=== PATIENT | female | born 1950 | race Caucasian/White ===

== ENCOUNTER 2019-05-30 13:32 | Observation (INO) ==
[2019-05-30] MEDS ORDERED: DEMEROL INJ IVP PRN (14:27)
[2019-05-30] MEDS ORDERED: NS 1000 ML 1,000 ML ONE (14:40)
[2019-05-30 14:54] LABS: BASOPHILS # (AUTO) 0.1 X10^3/uL (0.0-0.1); BASOPHILS % (AUTO) 0.7 % (0.2-1.0); EOSINOPHILS # (AUTO) 0.2 x10^3/uL (0.0-0.2); EOSINOPHILS % (AUTO) 2.2 % (0.9-2.9); HEMATOCRIT 43.3 % (36.0-47.0); HEMOGLOBIN 15.3 g/dL (12.0-16.0); LYMPHOCYTES # (AUTO) 1.8 X10^3/uL (1.3-2.9); LYMPHOCYTES % (AUTO) 18.1 % (21.0-51.0); MEAN CORPUSCULAR HEMOGLOBIN 33.2 pg (27.0-34.0); MEAN CORPUSCULAR HGB CONC 35.3 g/dL (33.0-35.0); MEAN PLATELET VOLUME 9.1 fL (7.4-11.0); MONOCYTES # (AUTO) 0.9 x10^3/uL (0.3-0.8); MONOCYTES % (AUTO) 8.8 % (0.0-13.0); NEUTROPHILS # (AUTO) 7.1 x10^3/uL (2.2-4.8); NEUTROPHILS % (AUTO) 70.2 % (42.0-75.0); PLATELET COUNT 218 X10^3/uL (150.0-450.0); RED BLOOD COUNT 4.61 X10^6/uL (3.5-5.4); RED CELL DISTRIBUTION WIDTH 14.5 % (11.6-16.5); WHITE BLOOD COUNT 10.1 X10^3/uL (3.6-10.0)
[2019-05-30 15:09] LABS: ALANINE AMINOTRANSFERASE 17 Units/L (12-78); ALBUMIN 3.6 g/dL (3.4-5.0); ALKALINE PHOSPHATASE 114 Units/L (46-116); AMYLASE 40 Units/L (25-115); ASPARTATE AMINO TRANSFERASE 17 Units/L (15-37); BLOOD UREA NITROGEN 10 mg/dL (7-18); CALCIUM 9.2 mg/dL (8.5-10.1); CARBON DIOXIDE 20.8 mmol/L (21-32); CHLORIDE 103 mmol/L (98-107); COR NA(FOR HYPERGLY) 139 mmol/L (136-145); CREATININE 1.13 mg/dL (0.55-1.02); LIPASE 134 Units/L (73-393); SODIUM 138 mmol/L (136-145); TOTAL PROTEIN 7.9 g/dL (6.4-8.2); eGFR NON BLACK RACES 51 (>60)
[2019-05-30] MEDS: NS 1000 ML 1,000 ML IV SCH (15:15)
[2019-05-30] MEDS: FLAGYL IV PREMIX 500 MG BAG 500 MG/100 ML BAG IV SCH ×2 (15:15→21:05)
[2019-05-30] MEDS: CIPRO IV 400 MG PREMIX* 400 MG/200 ML IV.SOLN. IV SCH ×2 (15:16→22:13)
[2019-05-30 15:25] VITALS: BMI 26.1
[2019-05-30] MEDS ORDERED: KLOR-CON PO PRN (15:51)
[2019-05-30] MEDS ORDERED: POTASSIUM CHL 60 MEQ/NS 0.45% 500 ML IV PRN (15:51)
[2019-05-30] MEDS ORDERED: POTASSIUM CHLORIDE LIQ 20 MEQ UDC PO PRN (15:51)
[2019-05-30] MEDS ORDERED: K-RIDER 10 MEQ/NS 100 ML 10 MEQ/100 ML BAG IV PRN (15:51)
[2019-05-30] MEDS ORDERED: POTASSIUM CHL 40 MEQ/NS 0.45% 500 ML IV PRN (15:51)
[2019-05-30] MEDS ORDERED: MICRO K EXTEN CAP 10 MEQ PO PRN (15:51)
[2019-05-30 17:03] LABS: CRYPTOSPORIDIUM PARVUM ANTIGEN NEGATIVE (NEGATIVE); GIARDIA LAMBLIA ANTIGEN NEGATIVE (NEGATIVE)
[2019-05-30] MEDS: K-DUR TAB 20 MEQ PO PRN (18:34)
[2019-05-30] MEDS: MAGNESIUM SULFATE 1 GRAM/100 mL PREMIX 1 GM/100 ML BAG IV PRN ×2 (18:35→20:10)
[2019-05-30] MEDS: PEPCID TAB 20 MG PO SCH (20:09)
[2019-05-30] MEDS: PROTONIX TAB 40 MG PO SCH (20:09)
[2019-05-30] MEDS: ZOFRAN INJ 4 MG VIAL IVP PRN (20:10)
--- NOTE | 2019-05-30 20:20 | CT ---
CT abdomen and pelvis with contrastIndication: Lower quadrant abdominal painTechnique: Helical CT images of the abdomen and pelvis were obtained with IV contrast. Reformatted images in the coronal and sagittal planes were also generated for review.Comparison: NoneFindings: Lung bases are clear of acute infiltrates. No acute osseous abnormality.The liver, gallbladder, spleen, pancreas, adrenals and kidneys are unremarkable.There is diffuse mural thickening and mucosal enhancement of the entire colon, compatible with pancolitis. Mild diverticulosis of the distal colon is also noted. No associated abscess or free air to suggest perforation seen. There is no bowel obstruction.The abdominal aorta is mildly calcified without aneurysm. The partially collapsed urinary bladder is grossly normal. Uterus is absent. No significant free fluid or lymphadenopathy is identified.Impression:Pancolitis, which is likely infectious rather than ischemic or infectious in etiology. Correlate clinically.Mild distal colonic diverticulosis and additional findings as above.Reported By:
[2019-05-30 21:57] LABS: BILIRUBIN,URINE NEGATIVE (NEGATIVE); BLOOD/HEMOGLOBIN,URINE 3+ (NEGATIVE); GLUCOSE, URINE NEGATIVE (NEGATIVE); KETONES,URINE 1+ (NEGATIVE); LEUKOCYTE ESTERASE ,URINE 1+ (NEGATIVE); NITRITES,URINE NEGATIVE (NEGATIVE); PROTEIN,URINE 2+ (NEGATIVE); UROBILINOGEN,URINE NORMAL (NORMAL)
[2019-05-30 22:10] LABS: APPEARANCE,URINE CLEAR (CLEAR); BACTERIA,URINE NEGATIVE /HPF (NEGATIVE); COLOR,URINE YELLOW (YELLOW); SQUAMOUS EPITHELIAL CELL,UR FEW /HPF (NEGATIVE)
[2019-05-30] MEDS: ZESTRIL TAB 5 MG PO SCH (22:16)
[2019-05-30] MEDS: BRILINTA PO SCH (22:16)
[2019-05-30] MEDS: LOPRESSOR TAB 25 MG PO SCH (22:16)
[2019-05-31] MEDS: NS 1000 ML 1,000 ML IV SCH ×3 (00:33→16:05)
[2019-05-31] MEDS: FLAGYL IV PREMIX 500 MG BAG 500 MG/100 ML BAG IV SCH ×4 (02:27→21:01)
[2019-05-31 05:30] LABS: BASOPHILS # (AUTO) 0.1 X10^3/uL (0.0-0.1); BASOPHILS % (AUTO) 0.8 % (0.2-1.0); EOSINOPHILS # (AUTO) 0.3 x10^3/uL (0.0-0.2); EOSINOPHILS % (AUTO) 4.1 % (0.9-2.9); HEMATOCRIT 40.1 % (36.0-47.0); LYMPHOCYTES # (AUTO) 1.6 X10^3/uL (1.3-2.9); LYMPHOCYTES % (AUTO) 18.7 % (21.0-51.0); MEAN CORPUSCULAR HEMOGLOBIN 32.6 pg (27.0-34.0); MEAN CORPUSCULAR HGB CONC 34.9 g/dL (33.0-35.0); MEAN CORPUSCULAR VOLUME 93.4 fL (80.0-100.0); MEAN PLATELET VOLUME 8.9 fL (7.4-11.0); MONOCYTES # (AUTO) 0.9 x10^3/uL (0.3-0.8); MONOCYTES % (AUTO) 10.8 % (0.0-13.0); NEUTROPHILS # (AUTO) 5.5 x10^3/uL (2.2-4.8); NEUTROPHILS % (AUTO) 65.6 % (42.0-75.0); PLATELET COUNT 224 X10^3/uL (150.0-450.0); RED BLOOD COUNT 4.29 X10^6/uL (3.5-5.4); RED CELL DISTRIBUTION WIDTH 14.2 % (11.6-16.5); WHITE BLOOD COUNT 8.4 X10^3/uL (3.6-10.0)
[2019-05-31 05:31] LABS: ALANINE AMINOTRANSFERASE 13 Units/L (12-78); ALBUMIN 3.2 g/dL (3.4-5.0); ALKALINE PHOSPHATASE 99 Units/L (46-116); ASPARTATE AMINO TRANSFERASE 16 Units/L (15-37); BLOOD UREA NITROGEN 8 mg/dL (7-18); CALCIUM 8.6 mg/dL (8.5-10.1); CARBON DIOXIDE 22.8 mmol/L (21-32); CHLORIDE 105 mmol/L (98-107); COR CA(FOR HYPOALB) 9.2 mg/dL (8.5-10.1); COR NA(FOR HYPERGLY) 139 mmol/L (136-145); CREATININE 1.06 mg/dL (0.55-1.02); MAGNESIUM 2.3 mg/dL (1.7-2.9); SODIUM 138 mmol/L (136-145); TOTAL PROTEIN 7.1 g/dL (6.4-8.2); eGFR NON BLACK RACES 55 (>60)
[2019-05-31] MEDS: PEPCID TAB 20 MG PO SCH (12:41)
[2019-05-31] MEDS: ASPIRIN EC 81 MG PO SCH (12:41)
[2019-05-31] MEDS: LOPRESSOR TAB 25 MG PO SCH ×2 (12:41→21:02)
[2019-05-31] MEDS: PROTONIX TAB 40 MG PO SCH ×2 (12:41→21:01)
[2019-05-31] MEDS: BRILINTA PO SCH ×2 (12:41→21:01)
[2019-05-31] MEDS: CIPRO IV 400 MG PREMIX* 400 MG/200 ML IV.SOLN. IV SCH (12:42)
[2019-05-31] MEDS: ZESTRIL TAB 5 MG PO SCH ×2 (12:47→21:00)
--- NOTE | 2019-05-31 13:43 | PCM.PROG ---
Progress Note Progress Note for Day of Date of Exam: 05/31/19 Subjective Subjective: Patient seen at bedside, continues to have watery diarrhea. She had over 10 BM overnight, no blood. She still has LLQ pain. Denies nausea or vomiting. She states she is hungry. CTAP showed pancolitis, H. Pylori stool antigen positive. Denies prev hx. Past Medical Family Social History Past Med/Fam/Surg Hx: No changes since H&P Allergies: Allergies No Known Drug Allergies Allergy (Verified 05/30/19 14:29) Review of Systems ROS: No change since H&P Vital Signs and I&O's Vital Signs: Temperature 98.1 F Pulse Rate [Right Brachial] 78 Respiratory Rate 18 Blood Pressure [Right Arm] 144/71 O2 Sat by Pulse Oximetry 97 Intake and Output: Intake & Output 05/28/19 05/29/19 05/30/19 05/31/19 23:59 23:59 23:59 23:59 Intake Total 800 / 800 900 / 900 Balance 800 / 800 900 / 900 Physical Exam Oriented: Normal Eyes: Normal Ear: Normal Throat: Normal Respiratory: Normal Cardiovascular: Normal Auscultation: Bowel Sounds: Decreased Tenderness: LLQ and Mild; negative Rebound and Guarding Skin: Normal Musculoskeletal: Normal Psychiatric: Normal Mood Description: Calm Affect: Normal Speech Pattern: Clear and Appropriate Laboratory and Diagnostics Result Diagrams: 05/31/19 04:24 05/31/19 04:24 Labs: 05/30/19 15:55 Stool Stool Culture - Preliminary 05/30/19 15:55 Stool - Final Laboratory WBC 8.4 X10^3/uL (3.6-10.0) 05/31/19 04:24 RBC 4.29 X10^6/uL (3.5-5.4) 05/31/19 04:24 Hgb 14.0 g/dL (12.0-16.0) 05/31/19 04:24 Hct 40.1 % (36.0-47.0) 05/31/19 04:24 MCV 93.4 fL (80.0-100.0) 05/31/19 04:24 MCH 32.6 pg (27.0-34.0) 05/31/19 04:24 MCHC 34.9 g/dL (33.0-35.0) 05/31/19 04:24 RDW 14.2 % (11.6-16.5) 05/31/19 04:24 Plt Count 224 X10^3/uL (150.0-450.0) 05/31/19 04:24 MPV 8.9 fL (7.4-11.0) 05/31/19 04:24 Neut % (Auto) 65.6 % (42.0-75.0) 05/31/19 04:24 Lymph % (Auto) 18.7 % (21.0-51.0) L 05/31/19 04:24 Saline % (Auto) 10.8 % (0.0-13.0) 05/31/19 04:24 Eos % (Auto) 4.1 % (0.9-2.9) H 05/31/19 04:24 Baso % (Auto) 0.8 % (0.2-1.0) 05/31/19 04:24 Neut # (Auto) 5.5 x10^3/uL (2.2-4.8) H 05/31/19 04:24 Lymph # (Auto) 1.6 X10^3/uL (1.3-2.9) 05/31/19 04:24 Saline # (Auto) 0.9 x10^3/uL (0.3-0.8) H 05/31/19 04:24 Eos # (Auto) 0.3 x10^3/uL (0.0-0.2) H 05/31/19 04:24 Baso # (Auto) 0.1 X10^3/uL (0.0-0.1) 05/31/19 04:24 Absolute Nucleated RBC 0.0 /100WBC 05/31/19 04:24 Sodium 138 mmol/L (136-145) 05/31/19 04:24 Corrected Sodium 139 mmol/L (136-145) 05/31/19 04:24 Potassium 3.3 mmol/L (3.5-5.1) L 05/31/19 04:24 Chloride 105 mmol/L (98-107) 05/31/19 04:24 Carbon Dioxide 22.8 mmol/L (21-32) 05/31/19 04:24 BUN 8 mg/dL (7-18) 05/31/19 04:24 Creatinine 1.06 mg/dL (0.55-1.02) H 05/31/19 04:24 Est GFR (MDRD) Af Amer > 60 (>60) 05/31/19 04:24 Est GFR (MDRD) Non-Af 55 (>60) L 05/31/19 04:24 Glucose 129 mg/dL (65-99) H 05/31/19 04:24 Calcium 8.6 mg/dL (8.5-10.1) 05/31/19 04:24 Corrected Calcium 9.2 mg/dL (8.5-10.1) 05/31/19 04:24 Magnesium 2.3 mg/dL (1.7-2.9) 05/31/19 04:24 Total Bilirubin 0.50 mg/dL (0.2-1.0) 05/31/19 04:24 AST 16 Units/L (15-37) 05/31/19 04:24 ALT 13 Units/L (12-78) 05/31/19 04:24 Alkaline Phosphatase 99 Units/L (46-116) 05/31/19 04:24 Total Protein 7.1 g/dL (6.4-8.2) 05/31/19 04:24 Albumin 3.2 g/dL (3.4-5.0) L 05/31/19 04:24 Globulin 3.9 g/dL (2.5-4.5) 05/31/19 04:24 Albumin/Globulin Ratio 0.8 Ratio (1.1-2.1) L 05/31/19 04:24 Amylase 40 Units/L (25-115) 05/30/19 14:35 Lipase 134 Units/L (73-393) 05/30/19 14:35 Specimen Type Clean catch urine 05/30/19 21:23 Urine Color Yellow (YELLOW) 05/30/19 21:23 Urine Appearance Clear (CLEAR) 05/30/19 21:23 Urine pH 5.0 (5.0 - 8.0) 05/30/19 21:23 Ur Specific [place] 1.010 (1.000-1.030) 05/30/19 21:23 Urine Protein 2+ (NEGATIVE) 05/30/19 21:23 Urine Glucose (UA) Negative (NEGATIVE) 05/30/19 21:23 Urine Ketones 1+ (NEGATIVE) 05/30/19 21:23 Urine Occult Blood 3+ (NEGATIVE) 05/30/19 21:23 Urine Nitrite Negative (NEGATIVE) 05/30/19 21:23 Urine Bilirubin Negative (NEGATIVE) 05/30/19 21:23 Urine Urobilinogen Normal (NORMAL) 05/30/19 21:23 Ur Leukocyte Esterase 1+ (NEGATIVE) 05/30/19 21:23 Urine RBC 3-5 /HPF (0-3) A 05/30/19 21:23 Urine WBC 0-2 /HPF (0-5) 05/30/19 21:23 Ur Squamous Epith Cells Few /HPF (NEGATIVE) 05/30/19 21:23 Urine Bacteria Negative /HPF (NEGATIVE) 05/30/19 21:23 Ur Culture Indicated? No/not indicated 05/30/19 21:23 Stool Description 100g,green,liquid 05/30/19 15:55 Stool Description 100g,green,liquid 05/30/19 15:55 Stl Occult Blood (IFOB) Positive (NEGATIVE) A 05/30/19 15:55 Stool for White Cells Positive (NEGATIVE) A 05/30/19 15:55 Stl C. diff Tox B Gene Negative (NEGATIVE) 05/30/19 15:55 Stl C. diff 027-NAP1-BI Negative (NEGATIVE) 05/30/19 15:55 Stool H. pylori Ag Positive (NEGATIVE) A 05/30/19 15:55 Cryptosporid parvum Ag Negative (NEGATIVE) 05/30/19 15:55 Giardia lamblia Ag Negative (NEGATIVE) 05/30/19 15:55 Plan (1) Pancolitis: Status: Acute Plan: CTAP: concerning for diffuse mural thickening and pancolitis. Currently on Cipro and Flagyl. C.diff and campy negative. Stool culture H. Pylori antigen positive. Currently NPO, start clear liquids Will DC cipro and start quadruple therapy for H. Pylori infection. No prior hx of diarrhea or IBD, concern for IBD including UC. (2) H. pylori infection: Status: Acute Plan: Start PPI + Bismuth + Flagyl + Doxycycline (3) Dehydration: Status: Acute Plan: continue hydration with IVF (4) Hypokalemia: Status: Acute Plan: replace as per protocol (5) Acute renal failure: Status: Acute Qualifiers: Acute renal failure type: unspecified Qualified Code(s): N17.9 - Acute kidney failure, unspecified Plan: likely pre-renal due to diarrhea, Cr trending down, continue hydration.
[2019-05-31] MEDS: PEPTO-BISMOL ORAL SUSP BTL PO SCH ×4 (15:07→21:01)
[2019-05-31] MEDS: VIBRAMYCIN PO SCH ×2 (16:05→21:01)
[2019-05-31] MEDS ORDERED: SYNTHROID 25 mcg TAB PO SCH (16:30)
[2019-05-31] MEDS: ZOFRAN INJ 4 MG VIAL IVP PRN (17:04)
[2019-05-31] MEDS ORDERED: BUTT CREAM (COMPOUND) ONE (17:49)
[2019-05-31] MEDS: K-DUR TAB 20 MEQ PO PRN (21:02)
[2019-06-01] MEDS: FLAGYL IV PREMIX 500 MG BAG 500 MG/100 ML BAG IV SCH ×2 (03:15→08:29)
[2019-06-01] MEDS: NS 1000 ML 1,000 ML IV SCH ×2 (04:27→09:36)
[2019-06-01] MEDS: PROTONIX TAB 40 MG PO SCH (08:30)
[2019-06-01] MEDS: ASPIRIN EC 81 MG PO SCH (08:30)
[2019-06-01] MEDS: BRILINTA PO SCH (08:30)
[2019-06-01] MEDS: LOPRESSOR TAB 25 MG PO SCH (08:30)
[2019-06-01] MEDS: PEPTO-BISMOL ORAL SUSP BTL PO SCH ×2 (08:30→13:18)
[2019-06-01] MEDS: ZESTRIL TAB 5 MG PO SCH (08:30)
[2019-06-01] MEDS: VIBRAMYCIN PO SCH (08:33)
[2019-06-01 09:47] LABS: BASOPHILS # (AUTO) 0.1 X10^3/uL (0.0-0.1); BASOPHILS % (AUTO) 1.3 % (0.2-1.0); EOSINOPHILS # (AUTO) 0.4 x10^3/uL (0.0-0.2); EOSINOPHILS % (AUTO) 5.5 % (0.9-2.9); HEMATOCRIT 36.5 % (36.0-47.0); HEMOGLOBIN 12.8 g/dL (12.0-16.0); LYMPHOCYTES # (AUTO) 1.7 X10^3/uL (1.3-2.9); LYMPHOCYTES % (AUTO) 24.1 % (21.0-51.0); MEAN CORPUSCULAR HEMOGLOBIN 32.7 pg (27.0-34.0); MEAN CORPUSCULAR HGB CONC 35.1 g/dL (33.0-35.0); MEAN CORPUSCULAR VOLUME 93.3 fL (80.0-100.0); MEAN PLATELET VOLUME 8.6 fL (7.4-11.0); MONOCYTES # (AUTO) 0.7 x10^3/uL (0.3-0.8); MONOCYTES % (AUTO) 10.1 % (0.0-13.0); NEUTROPHILS # (AUTO) 4.2 x10^3/uL (2.2-4.8); PLATELET COUNT 206 X10^3/uL (150.0-450.0); RED BLOOD COUNT 3.91 X10^6/uL (3.5-5.4); RED CELL DISTRIBUTION WIDTH 14.5 % (11.6-16.5); WHITE BLOOD COUNT 7.1 X10^3/uL (3.6-10.0)
[2019-06-01 10:04] LABS: ALANINE AMINOTRANSFERASE 13 Units/L (12-78); ALBUMIN 2.9 g/dL (3.4-5.0); ALKALINE PHOSPHATASE 84 Units/L (46-116); ASPARTATE AMINO TRANSFERASE 19 Units/L (15-37); BLOOD UREA NITROGEN 6 mg/dL (7-18); CALCIUM 8.3 mg/dL (8.5-10.1); CARBON DIOXIDE 21.8 mmol/L (21-32); CHLORIDE 110 mmol/L (98-107); COR CA(FOR HYPOALB) 9.2 mg/dL (8.5-10.1); COR NA(FOR HYPERGLY) 140 mmol/L (136-145); CREATININE 0.99 mg/dL (0.55-1.02); SODIUM 140 mmol/L (136-145); TOTAL PROTEIN 6.1 g/dL (6.4-8.2); eGFR NON BLACK RACES 59 (>60)
[2019-06-01 12:40] VITALS: BP 170/72
--- NOTE | 2019-06-01 12:40 | W.DIS.FURT ---
Summary of Discharge Discharge Summary of Date Date of Exam: 06/01/19 Admission Date Date of Admission: 05/30/19 Admission Diagnosis Patient Problems (Updated 06/01/19 @ 13:37 by Karla Britt) Colitis due to Salmonella species (Acute) A02.0 Acute renal failure (Acute) N17.9 Hypokalemia (Acute) E87.6 Dehydration (Acute) E86.0 H. pylori infection (Acute) A04.8 Pancolitis (Acute) K51.00 Hospital Course: Patient presented with over 10 episodes of diarrhea that has worsening since last week. She also had left sided abdominal pain. CTAP showed pancolitis, she was started on hydration with normal saline and Cipro and Flagyl. Stool studies were collected, C diff negative, H Pylori antigen positive. She was started on quadruple therapy. Patient was started on clear liquids which she tolerated well. Her diarrhea improved the next day. Stool culture came back with Salmonella. Patient was stable for discharge on quadruple therapy for H. Pylori and Cipro x 5 days for salmonella. She will follow up with PCP within one week and GI referral with Dr. Claudio in 2 weeks. Patient will need repeat testing for H Pylori eradication in 6-8 weeks and possible colonoscopy to rule out inflammatory disease. Vital Signs: Vital Signs (72 hours) 05/30/19 14:29 05/30/19 16:00 05/30/19 20:00 Temperature 97.8 F 98.1 F 98.4 F Pulse Rate [Right Brachial] 98 H 95 H 101 H Respiratory Rate 20 20 20 Blood Pressure [Right Arm] 179/89 132/88 172/70 O2 Sat by Pulse Oximetry 99 98 98 05/30/19 23:28 05/31/19 04:00 05/31/19 08:00 Temperature 98.0 F 97.6 F 97.8 F Pulse Rate [Right Brachial] 90 77 76 Respiratory Rate 18 20 18 Blood Pressure [Right Arm] 149/70 149/67 165/71 O2 Sat by Pulse Oximetry 98 96 98 05/31/19 12:00 05/31/19 16:00 05/31/19 20:00 Temperature 98.1 F 97.9 F 97.3 F L Pulse Rate [Right Brachial] 78 70 73 Respiratory Rate 18 16 14 Blood Pressure [Right Arm] 144/71 165/73 155/74 O2 Sat by Pulse Oximetry 97 97 98 05/31/19 23:34 06/01/19 04:00 06/01/19 07:50 Temperature 98.8 F 98.4 F 98.4 F Pulse Rate [Right Brachial] 73 77 78 Respiratory Rate 18 16 18 Blood Pressure [Right Arm] 125/65 154/75 131/69 O2 Sat by Pulse Oximetry 98 98 98 Labs: Laboratory Last Values WBC 7.1 X10^3/uL (3.6-10.0) 06/01/19 09:39 RBC 3.91 X10^6/uL (3.5-5.4) 06/01/19 09:39 Hgb 12.8 g/dL (12.0-16.0) 06/01/19 09:39 Hct 36.5 % (36.0-47.0) 06/01/19 09:39 MCV 93.3 fL (80.0-100.0) 06/01/19 09:39 MCH 32.7 pg (27.0-34.0) 06/01/19 09:39 MCHC 35.1 g/dL (33.0-35.0) H 06/01/19 09:39 RDW 14.5 % (11.6-16.5) 06/01/19 09:39 Plt Count 206 X10^3/uL (150.0-450.0) 06/01/19 09:39 MPV 8.6 fL (7.4-11.0) 06/01/19 09:39 Neut % (Auto) 59.0 % (42.0-75.0) 06/01/19 09:39 Lymph % (Auto) 24.1 % (21.0-51.0) 06/01/19 09:39 [place] % (Auto) 10.1 % (0.0-13.0) 06/01/19 09:39 Eos % (Auto) 5.5 % (0.9-2.9) H 06/01/19 09:39 Baso % (Auto) 1.3 % (0.2-1.0) H 06/01/19 09:39 Neut # (Auto) 4.2 x10^3/uL (2.2-4.8) 06/01/19 09:39 Lymph # (Auto) 1.7 X10^3/uL (1.3-2.9) 06/01/19 09:39 [place] # (Auto) 0.7 x10^3/uL (0.3-0.8) 06/01/19 09:39 Eos # (Auto) 0.4 x10^3/uL (0.0-0.2) H 06/01/19 09:39 Baso # (Auto) 0.1 X10^3/uL (0.0-0.1) 06/01/19 09:39 Absolute Nucleated RBC 0.0 /100WBC 06/01/19 09:39 Sodium 140 mmol/L (136-145) 06/01/19 09:39 Corrected Sodium 140 mmol/L (136-145) 06/01/19 09:39 Potassium 3.6 mmol/L (3.5-5.1) 06/01/19 09:39 Chloride 110 mmol/L (98-107) H 06/01/19 09:39 Carbon Dioxide 21.8 mmol/L (21-32) 06/01/19 09:39 BUN 6 mg/dL (7-18) L 06/01/19 09:39 Creatinine 0.99 mg/dL (0.55-1.02) 06/01/19 09:39 Est GFR (MDRD) Af Amer > 60 (>60) 06/01/19 09:39 Est GFR (MDRD) Non-Af 59 (>60) 06/01/19 09:39 Glucose 116 mg/dL (65-99) H 06/01/19 09:39 Calcium 8.3 mg/dL (8.5-10.1) L 06/01/19 09:39 Corrected Calcium 9.2 mg/dL (8.5-10.1) 06/01/19 09:39 Magnesium 2.3 mg/dL (1.7-2.9) 05/31/19 04:24 Total Bilirubin 0.40 mg/dL (0.2-1.0) 06/01/19 09:39 AST 19 Units/L (15-37) 06/01/19 09:39 ALT 13 Units/L (12-78) 06/01/19 09:39 Alkaline Phosphatase 84 Units/L (46-116) 06/01/19 09:39 Total Protein 6.1 g/dL (6.4-8.2) L 06/01/19 09:39 Albumin 2.9 g/dL (3.4-5.0) L 06/01/19 09:39 Globulin 3.2 g/dL (2.5-4.5) 06/01/19 09:39 Albumin/Globulin Ratio 0.9 Ratio (1.1-2.1) L 06/01/19 09:39 Amylase 40 Units/L (25-115) 05/30/19 14:35 Lipase 134 Units/L (73-393) 05/30/19 14:35 Specimen Type Clean catch urine 05/30/19 21:23 Urine Color Yellow (YELLOW) 05/30/19 21: Urine Appearance Clear (CLEAR) 05/30/19 21:23 Urine pH 5.0 (5.0 - 8.0) 05/30/19 21:23 Ur Specific [place] 1.010 (1.000-1.030) 05/30/19 21:23 Urine Protein 2+ (NEGATIVE) 05/30/19 21:23 Urine Glucose (UA) Negative (NEGATIVE) 05/30/19 21:23 Urine Ketones 1+ (NEGATIVE) 05/30/19 21:23 Urine Occult Blood 3+ (NEGATIVE) 05/30/19 21: Urine Nitrite Negative (NEGATIVE) 05/30/19 21: Urine Bilirubin Negative (NEGATIVE) 05/30/19 21:23 Urine Urobilinogen Normal (NORMAL) 05/30/19 21:23 Ur Leukocyte Esterase 1+ (NEGATIVE) 05/30/19 21:23 Urine RBC 3-5 /HPF (0-3) A 05/30/19 21:23 Urine WBC 0-2 /HPF (0-5) 05/30/19 21:23 Ur Squamous Epith Cells Few /HPF (NEGATIVE) 05/30/19 21:23 Urine Bacteria Negative /HPF (NEGATIVE) 05/30/19 21:23 Ur Culture Indicated? No/not indicated 05/30/19 21:23 Stool Description 100g,green,liquid 05/30/19 15:55 Stool Description 100g,green,liquid 05/30/19 15:55 Stl Occult Blood (IFOB) Positive (NEGATIVE) A 05/30/19 15:55 Stool for White Cells Positive (NEGATIVE) A 05/30/19 15:55 Stl C. diff Tox B Gene Negative (NEGATIVE) 05/30/19 15:55 Stl C. diff 027-NAP1-BI Negative (NEGATIVE) 05/30/19 15:55 Stool H. pylori Ag Positive (NEGATIVE) A 05/30/19 15:55 Cryptosporid parvum Ag Negative (NEGATIVE) 05/30/19 15:55 Giardia lamblia Ag Negative (NEGATIVE) 05/30/19 15:55 Reason For Visit: GASTROENTRITIS LEFT LOWER QUAD PAIN DEHYDRATION Discharge Date Discharge Date: 06/01/19 Discharge Diagnosis All Active Problems (Updated 06/01/19 @ 13:37 by Karla Britt) Colitis due to Salmonella species (Acute) Acute renal failure (Acute) Hypokalemia (Acute) Dehydration (Acute) H. pylori infection (Acute) Pancolitis (Acute) Plan of Treatment: Continue with present treatment and follow up plan. Pt is to keep follow up appointment as instructed and take medications as ordered. Discharge Medications Discharge Medications: No Known Drug Allergies Allergy (Verified 05/30/19 14:29) CONTINUE taking the following medications Brilinta 90 mg PO BID 05/30/19 [History] Unisom (diphenhydramine) 50 mg PO HS PRN 05/30/19 [History] aspirin [Aspir-Low] 81 mg PO DAILY 05/30/19 [History] citalopram 40 mg PO DAILY 05/30/19 [History] levothyroxine 25 mcg PO DAILY 05/30/19 [History] lisinopril 5 mg PO BID 05/30/19 [History] melatonin 10 mg PO HS 05/30/19 [History] metoprolol tartrate 25 mg PO BID 05/30/19 [History] New Prescriptions Lactobacillus acidophilus 500 mmu cells PO TID #14 cap 06/01/19 [Rx] bismuth subsalicylate [Bismatrol] 30 ml PO QID 14 Days #1680 ml 06/01/19 [Rx] ciprofloxacin HCl 500 mg PO BID 5 Days #10 tab 06/01/19 [Rx] doxycycline hyclate 100 mg PO BID 14 Days #28 cap 06/01/19 [Rx] metronidazole 500 mg PO Q8H 14 Days #42 tab 06/01/19 [Rx] pantoprazole 40 mg PO BID 14 Days #28 tab 06/01/19 [Rx] Follow up and Referral Follow Up: 1 Week (PCP) 2 Weeks (GI ) Discharge Disposition Discharge Disposition: Home
--- NOTE | 2019-06-03 10:53 | DR.UPDATE ---
H&P Update History and Physical Update: History and Physical reviewed and patient examined. Changes noted: Yes with the following: WAS SEEN IN THE OFFICE DUE TO LLQ PAIN, DIARRHEA X 6 DAYS, NAUSEA, AND VOMITING. SHE WAS ADMITTED FOR FURTHER EVALUATION AND TREATMENT OF DEHYDRATION, GASTROENTERITIS, INTRACTABLE DIARRHEA, AND LLQ ABDOMINAL PAIN. ON ADMISSION, WE WILL OBTAIN LABS, URINALYSIS, ABDOMEN/PELVIS CT AND STOOL STUDIES. WE WILL START NORMAL SALINE AT 125ML/HR, IV CIPRO, IV FLAGYL, IV ZOFRAN, AND IV DEMEROL. WE WILL MAKE FURTHER PLANS BASED ON RESULTS. Prescription drug monitoring program results: PDMP was not reviewed H&P Reviewed: Yes Patient was examined?: Yes
== END 2019-06-01 13:40 | disposition home or self-care (01) ==
LOC: MED/SURG
PROVIDERS: ADMIT Internal Medicine; ATTEND Internal Medicine
DX: E87.6 Hypokalemia; E86.0 Dehydration; R11.2 Nausea with vomiting, unspecified; A02.0 Salmonella enteritis; R10.32 Left lower quadrant pain; B96.81 Helicobacter pylori [H. pylori] as the cause of diseases classified elsewhere; N17.8 Other acute kidney failure
CPT/HCPCS: 36415; 74177; 80053; 81001; 82150; 82270; 83630; 83690; 83735; 84132; 85025; 87045; 87077; 87186; 87328; 87329; 87338; 87427; 87449; 87493; 87899; 96360; 96361; 96374; A4216; A4222; S0030; G0378; J0744; J2405; J3475; J3480; J7030